=== PATIENT | female | born 1970 | race Caucasian/White ===

== ENCOUNTER 2022-03-23 06:00 | Outpatient (REF) | payer BC, SELFPAY ==
--- NOTE | ~2022-03-23 | XR_ITS ---
EXAMINATION: XR knee LT 2V, XR knee standing BI CLINICAL INFORMATION: Reason for Exam M25.562 - Pain in left knee COMPARISON: None. TECHNIQUE: Two views of the left knee and one view of the bilateral knees standing. FINDINGS: Tiny osseous fragment noted along the lateral left femoral condyle may reflect sequelae of age-indeterminate lateral collateral ligament avulsion fracture. Joint spaces are maintained without significant degenerative change. Moderate left suprapatellar joint effusion. XR/XR knee LT 2V IMPRESSION: 1. Tiny osseous fragment noted along the lateral left femoral condyle may reflect sequelae of age-indeterminate lateral collateral ligament avulsion fracture. 2. Moderate left suprapatellar joint effusion.
--- NOTE | ~2022-03-23 | XR_ITS ---
EXAMINATION: XR knee LT 2V, XR knee standing BI CLINICAL INFORMATION: Reason for Exam M25.562 - Pain in left knee COMPARISON: None. TECHNIQUE: Two views of the left knee and one view of the bilateral knees standing. FINDINGS: Tiny osseous fragment noted along the lateral left femoral condyle may reflect sequelae of age-indeterminate lateral collateral ligament avulsion fracture. Joint spaces are maintained without significant degenerative change. Moderate left suprapatellar joint effusion. XR/XR knee standing BI IMPRESSION: 1. Tiny osseous fragment noted along the lateral left femoral condyle may reflect sequelae of age-indeterminate lateral collateral ligament avulsion fracture. 2. Moderate left suprapatellar joint effusion.
== END 2022-03-23 06:01 | disposition home or self-care (01) ==
LOC: HO.HOSX 06:00
PROVIDERS: Visit Provider Physician Assistant
DX: M25.561 Pain in right knee (principal); M25.562 Pain in left knee; M25.462 Effusion, left knee; M71.22 Synovial cyst of popliteal space [Baker], left knee; I10 Essential (primary) hypertension; E78.00 Pure hypercholesterolemia, unspecified
CPT/HCPCS: 20610; 73560; 73565; J1100

== ENCOUNTER → 2022-08-17 09:11 | Outpatient (BNVA) | payer BC, SELFPAY | PROVIDERS: Visit Provider Orthopaedic Surgery | DX: Z13.89 Encounter for screening for other disorder (principal) ==

== ENCOUNTER 2023-05-04 15:04 | Outpatient (REF) | payer BC, SELFPAY ==
--- NOTE | ~2023-05-04 | MR_ITS ---
EXAMINATION: MR KNEE WITHOUT CONTRAST, LEFT CLINICAL INFORMATION: Knee pain and swelling. COMPARISON: X-ray 03/23/2022. TECHNIQUE: MRI of the knee without contrast was performed using routine sequences on a high-field scanner. FINDINGS: MENISCI: Medial Meniscus: Intact. Lateral Meniscus: Undersurface and free-edge degenerative fraying of the posterior root/central posterior horn. LIGAMENTS: Cruciate: ACL is intact. T2 signal and slight irregularity of the proximal PCL, could reflect mucoid degeneration or partial tear. Collateral: MCL is intact. LCL complex appears intact. The small ossific fragment adjacent to the lateral femoral condyle, seen on the prior x-ray, is not clearly evident on MRI. EXTENSOR MECHANISM: Intact. ARTICULAR CARTILAGE/BONE: Patellofemoral Compartment: Medial patellar facet foci of mild cartilage fibrillation. Medial Compartment: No significant cartilage loss. Lateral Compartment: No significant cartilage loss. JOINT FLUID AND BURSAE: Small effusion. 3 mm low signal focus adjacent to the lateral meniscal posterior root, could reflect focal synovitis or loose body. Small Garcia's cyst. MR/MR knee LT wo con IMPRESSION: 1. Degenerative fraying of the posterior root/central posterior horn of the lateral meniscus. 2. Mucoid degeneration versus partial tear of the proximal PCL. 3. Mild patellofemoral arthritis. 4. Small effusion. 3 mm low signal focus adjacent to the lateral meniscal posterior root, could reflect focal synovitis or loose body. 5. Small Garcia's cyst.
== END 2023-05-04 15:05 | disposition home or self-care (01) ==
LOC: HO.MRI 15:04
PROVIDERS: PCP Family Medicine; Visit Provider Orthopaedic Surgery
DX: M25.462 Effusion, left knee (principal)
CPT/HCPCS: 73721

== ENCOUNTER 2023-06-07 10:12 | Outpatient (AMB) | payer BC, SELFPAY ==
--- NOTE | 2023-06-07 10:30 | A.OFFVIS_ITS ---
Intake Vital Signs 06/07/23 10:30 Height 5 ft 6 in Intake Visit Reasons: ov- MRI Knee LT review Allergies No Known Allergies [No Known Allergies*] Allergy (Unverified 06/07/23 10:31) HPI ov- MRI Knee LT review HPI Details Dana is a 53 year old woman who presents for an MRI review for her left knee pain & effusion. She received an injection on 03/23/22, with good relief. She complains of pain with daily activity, and feels unable to WB if she overuses her knee. She takes Ibuprofen for pain relief, and usually at nighttime. [facility] Medical History High cholesterol High blood pressure Social History Current occupational status: employed Current occupation: self employed/rt hand Review of Systems Const All systems reviewed & are unremarkable except as noted in HPI and below Physical Exam Const General: no acute distress, alert and awake Orientation/consciousness: patient oriented x3 HEENT Head: Yes normocephalic and Yes atraumatic Eyes EOM: EOMs intact bilaterally Resp Effort & Inspection: normal respiratory effort and able to speak in complete sentences Cardio Jugular venous distension: no JVD Skin General skin exam: turgor normal Rashes: no rashes Neuro General: patient oriented x3 Extrem Other: Mild retropatellar TTP and trace garcia's cyst Psych Appearance: grossly normal Affect: normal affect Attitude: cooperative Results Reviewed Results Reviewed: I personally reviewed the MR images. Degenerative fraying of the posterior root/central posterior horn of the lateral meniscus. 2. Mucoid degeneration versus partial tear of the proximal PCL. 3. Mild patellofemoral arthritis. 4. Small effusion. 3 mm low signal focus adjacent to the lateral meniscal posterior root, could reflect focal synovitis or loose body. 5. Small Garcia's cyst. Assessment & Plan Assessment & Plan (1) Synovial cyst of popliteal space [Garcia], left knee: Code(s): M71.22 - Synovial cyst of popliteal space [Garcia], left knee Plan: Effusion likely 2/2 PF OA. No treatment warranted as she is doing well Plan Prepared for Andrei Aguila MD by Esteban aHssan, director medical writing, on 06/07/23 at 10:34 AM, EST. Coding Level of Care Code Est Pt Level 3 (53815) Diagnoses Synovial cyst of popliteal space [Garcia], left knee M71.22
== END 2023-06-07 10:48 | disposition home or self-care (01) ==
PROVIDERS: PCP Family Medicine; Visit Provider Orthopaedic Surgery
DX: M71.22 Synovial cyst of popliteal space [Baker], left knee (principal)
CPT/HCPCS: 99212

== ENCOUNTER → 2023-06-07 10:12 | Outpatient (BNVA) | payer BC, SELFPAY | PROVIDERS: PCP Family Medicine; Visit Provider Orthopaedic Surgery ==